=== PATIENT | male | born 1950 | race Caucasian/White ===

== ENCOUNTER 2018-06-10 09:01 | Day surgery (SDC) | payer BC ==
[2018-06-09 16:12] VITALS: Ht 162.6 cm; Wt 58.2 kg
[2018-06-10] VITALS (20 sets, daily range): BP systolic 103–130; BP diastolic 74–97; PULSE 58–88; RESP 13–22
[~2018-06-10] VITALS: Ht 162.6 cm; Wt 58.2 kg
[~2018-06-10 09:01] MED LIST: SOD CHLORIDE 0.9% 1,000 ML IV SCH
[2018-06-10] MEDS ORDERED: ASPI81TA52 PO (09:42)
[2018-06-10] MEDS ORDERED: ERGO500013 PO (09:42)
[2018-06-10] MEDS ORDERED: LOSA50TA14 PO (09:43)
[2018-06-10] MEDS ORDERED: ALEN70TA5 PO (09:43)
[2018-06-10] MEDS ORDERED: OMEP20CA16 PO (09:44)
[2018-06-10] MEDS ORDERED: TAMS0.4C2 PO (09:44)
[2018-06-10] MEDS ORDERED: AMLO5TAB4 PO (09:45)
[2018-06-10] MEDS ORDERED: METO-335 PO (09:45)
[2018-06-10] MEDS ORDERED: ATOR20TA38 PO (09:45)
[2018-06-10] MEDS ORDERED: PRED5TAB PO (09:46)
[2018-06-10] MEDS ORDERED: MIDAZOLAM 1 MG/ML 2 ML INJ ONE (10:55)
[2018-06-10] MEDS ORDERED: IODIXANOL LOCM 100 ML BTL ONE ×2 (10:55→12:49)
[2018-06-10] MEDS ORDERED: VERAPAMIL 5 MG INJ ONE (10:55)
[2018-06-10] MEDS ORDERED: HEPARIN 1000 UNITS/ML 10 ML INJ ONE (10:55)
[2018-06-10] MEDS ORDERED: LIDOCAINE 1% (MDV) 20 ML INJ ONE (10:55)
[2018-06-10] MEDS ORDERED: FENTAnyl 50 MCG/ML VIAL ONE (10:55)
[2018-06-10] MEDS ORDERED: NITROGLYCERIN (IC) 100 MCG/ML INJ ONE (10:56)
[2018-06-10] MEDS ORDERED: ASPIRIN 325 MG TAB ONE (11:56)
[2018-06-10] MEDS ORDERED: CLOPIDOGREL 300 MG TAB ONE (11:56)
[2018-06-10] MEDS ORDERED: SOD CHLORIDE 0.9% 1,000 ML IV SCH (12:47)
[2018-06-10] MEDS ORDERED: CLOP75TA27 PO (12:52)
--- NOTE | 2018-06-10 12:52 | PDOCDIS ---
Discharge Instructions CONDITION [id number] Patient Condition: [id number] Good HOME CARE INSTRUCTIONS: [id number] Diet Instructions: [id number] Low Fat /Cholesterol ACTIVITY: [id number] Activity Restrictions: [id number] Slowly Increase Activity Avoid heavy lifting (Not more than 5 pounds with left arm for 3 days) Do not Drive (x 1 day) Herminio Judge DO Jun 10, 2018 12:52
[2018-06-10] MEDS ORDERED: OXYCODONE/ACETAMINOPHEN (5/325) TAB PO PRN (13:00)
[2018-06-10] MEDS ORDERED: AL HYDROX/MG HYDROX/SIMETH 30 ML CUP PO PRN (13:00)
[2018-06-10] MEDS ORDERED: ONDANSETRON 4 MG INJ IV PRN (13:00)
[2018-06-10] MEDS ORDERED: ACETAMINOPHEN 325 MG TAB PO PRN (13:00)
--- NOTE | 2018-06-10 13:00 | OPR ---
Date/Time of Note Date/Time of Note DATE: 06/10/18 TIME: 12:53 Operative Report Procedure Date: Jun 10, 2018 Preoperative Diagnosis Unstable angina History of non-ST elevation myocardial infarction Postoperative Diagnosis Obstructive coronary artery disease Operation/Procedure Performed Left heart catheterization Right and left coronary angiogram Interpretation and supervision of right and left coronary angiogram Left ventricular pressure measurements PCI of the proximal to mid LAD with the placement of a 2.75 x 16 mm Synergy drug-eluting stent PCI of the mid LAD with a placement of a 2.5 x 16 mm Synergy drug-eluting stent Left radial artery approach Surgeon see signature line [employer] Bioinformatician staff Anesthesia Type: MAC Estimated Blood Loss: minimal Transfusion none Specimen None Grafts/Implants none Complications none Pt Condition Post Procedure: stable Procedure Description Findings Hemodynamics LV pressure 131/4 with an EDP of 13 Aortic pressure 136/78 Coronary findings Left main is large caliber vessel with no significant disease LAD is a medium caliber vessel with a proximal to mid 99% stenosis and then mid 90% stenosis Circumflex is a medium caliber vessel with a proximal 40% stenosis, OM1 with a bifurcation lesion, superior branch 70% stenosis, inferior branch 80% stenosis RCA is a medium caliber vessel and dominant with a proximal to mid 80% stenosis, distal 30% stenosis Description of procedure Patient brought to the Bioinformatician after informed consent. Patient prepped and draped as per protocol. Left radial artery access was obtained and a 5/6 [place] sheath was placed. A 5 [place] JL 3.5 diagnostic catheter was used to engage the left main and angiogram was performed. We next used a 5 [place] JR4 catheter and angiogram of the RCA was performed. Given the severe disease in the LAD, intervention was performed within the same setting. Heparin was used for anticoagulation. An XB LAD 4.0 guide catheter was used. A run through wire was used to cross the proximal lesion but given the band on the wire, we were unable to cross the mid lesion. We next used a second run through wire and crossed both lesions and then removed our initial wire. Lesions were both predilated. The mid lesion was stented with a 2.5 x 16 mm Synergy drug-eluting stent. This was postdilated with the stent delivery system balloon. The proximal to mid lesion was stented with a 2.75 x 16 mm Synergy drug-eluting stent. This was postdilated with the stent delivery system balloon. There was an excellent graft result with ISAIAH-3 flow with no evidence of dissection. We then crossed the aorta and LV pressure measurements were obtained as well as pullback. Patient remained hemodynamically stable throughout the procedure. Recommendations Dual antiplatelet therapy for minimum of 1 year to maintain stent patency Smoking cessation Staged PCI of the RCA via femoral approach. Consider intervention of the circumflex if remains symptomatic Herminio Judge DO Jun 10, 2018 13:00
--- NOTE | 2018-06-10 18:40 | NUR ---
EOSS: Pt received from central lab technician at 1315, pt remains alert oriented times four. SR throughout shift, BP WNL throughout shift, afebrile throughout shift. TR Band deflated starting 1446, 2ml q30min, checked for hematoma or bleeding of site q15min, no problems identified. TR band removed at 1750, no problems identified. Educated pt on no wrist movement, no pressure on that side of arm for 24hrs, and to monitor site for bleeding and to call MD if bleeding occurs. Pt understands concept. Dr. Judge rounded on pt, said okay for DC at 2030. Family Cecil, daughter notified.
--- NOTE | 2018-06-10 20:45 | NUR ---
Discharge Notes Received patient in bed awake, alert and oriented. Patient had discharge orders, family came to pick him up at 8.30pm, discharge instructions given to family (, Son and Daughter). All their questions addressed at this time. IV Heplock discontinued, family dressed him up and we took him to their car on a wheelchair. VS stable, discharged in stable condition.
[2018-06-11] MEDS ORDERED: ASPIRIN (EC) 81 MG TAB PO SCH (09:00)
[2018-06-11] MEDS ORDERED: CLOPIDOGREL 75 MG TAB PO SCH (09:00)
== END 2018-06-10 20:45 | disposition home or self-care (01) ==
LOC: SDS 09:01 → ICU 13:15 → SDS 20:45
PROVIDERS: ATTEND Internal Medicine Cardiovascular Disease
DX: I25.110 Atherosclerotic heart disease of native coronary artery with unstable angina pectoris (principal); I25.2 Old myocardial infarction
CPT/HCPCS: 80048; 85025; 85610; 85730; 87081; 93005; 93458; C1725; C1874; C1887; C9600; J1644; J2250; J3010; Q9967; Z7610

== ENCOUNTER 2018-07-22 13:39 | Observation (INO) | payer BC ==
[2018-07-21 16:25] VITALS: Ht 162.6 cm; Wt 130.0 kg
[2018-07-22] VITALS (22 sets, daily range): BP systolic 88–123; BP diastolic 64–90; PULSE 37–102; RESP 10–31
[~2018-07-22] VITALS: Ht 162.6 cm; Wt 130.0 kg
[~2018-07-22 13:39] MED LIST changes: +ALEN70TA5 PO; +AMLO5TAB4 PO; +ASPI81TA52 PO; +ATOR20TA38 PO; +CLOP75TA27 PO; +ERGO500013 PO; +LOSA50TA14 PO; +METO-335 PO; +OMEP20CA16 PO; +PRED5TAB PO; -SOD CHLORIDE 0.9% 1,000 ML IV SCH; +TAMS0.4C2 PO
[2018-07-22] MEDS ORDERED: ALBU18HF INHALATION (14:20)
[2018-07-22] MEDS ORDERED: ATEN-51 PO (14:21)
--- NOTE | 2018-07-22 15:24 | RADRPT ---
Vent Rate: 94 bpm RR Interval: 0 msec RI Interval: 156 msec QRS Duration: 76 msec QT Interval: 350 msec QTC Interval: 437 msec P-R-T [place]: 31 - -16 - 44 degrees Normal sinus rhythm Normal ECG Electronically Signed By: Doug Terrazas
[2018-07-22] MEDS ORDERED: MIDAZOLAM 1 MG/ML 2 ML INJ ONE (15:44)
[2018-07-22] MEDS ORDERED: IODIXANOL LOCM 100 ML BTL ONE (15:44)
[2018-07-22] MEDS ORDERED: LIDOCAINE 1% (MDV) 20 ML INJ ONE (15:44)
[2018-07-22] MEDS ORDERED: HEPARIN 1000 UNITS/ML 10 ML INJ ONE ×2 (15:44→15:51)
[2018-07-22] MEDS ORDERED: FENTAnyl 50 MCG/ML VIAL ONE (15:44)
[2018-07-22] MEDS ORDERED: NITROGLYCERIN (IC) 100 MCG/ML INJ ONE (15:46)
[2018-07-22] MEDS ORDERED: SOD CHLORIDE 0.9% 500 ML ONE (15:46)
[2018-07-22] MEDS ORDERED: IOHEXOL 350MG/ML 50 ML BTL ONE (16:26)
[2018-07-22] MEDS ORDERED: SOD CHLORIDE 0.9% 1,000 ML IV SCH (16:31)
[2018-07-22] MEDS ORDERED: ASPIRIN 81 MG TAB ONE (16:40)
[2018-07-22] MEDS ORDERED: CLOPIDOGREL 75 MG TAB ONE ×2 (16:40→16:48)
--- NOTE | 2018-07-22 16:44 | OPR ---
Date/Time of Note Date/Time of Note DATE: 07/22/18 TIME: 16:38 Operative Report Preoperative Diagnosis cad Postoperative Diagnosis 3vcad Operation/Procedure Performed LHC s/p rca pci Surgeon see signature line Digital Media Planner none Anesthesia Type: moderate sedation Estimated Blood Loss: minimal Transfusion none Specimen none Grafts/Implants none Complications none Procedure Description Procedure Date: Preoperative Diagnosis 3VCAD Postoperative Diagnosis 3VCAD Operation/Procedure Performed Left heart cath right and left coronary angiography s/p RCA PCI supervision/interpretation of right and left coronary angiography right radial artery approach Surgeon: see signature line Digital Media Planner: none Anesthesia Type: other (none) Anesthesiologist: Tourniquet Time: Estimated Blood Loss: minimal Transfusion: none Specimen: none Grafts/Implants: none Tubes/Drains: Complications: none Pt Condition Post Procedure: stable Procedure Description The patient broght to the production laborer after informed consent obtained. The right femoral artery was cannulated using the seldinger technique and a 6F sheath was inserted. Thereafter, bilateral selective angiography was performed using a JR4 and JL 4 catheters , respectively. Using a 6F JR4 Guide catheter to engage the RCA and followed by a runthrough wire. PTCA with 2.5 x 15mm balloon in the mid/prox region. Given difficutly in advancing the stent, a fredrick wire was used with a BMW wire being the main wire over whiech the 3.0x38mm Syergy MEMO deplyed up to 12atm (3.1 MM). The procedure was tolerated well without complication. Findings: LM - 10% LAD - Prox and Mid stents patent with mild diffuse dsease CX - 95% Mid disease, OM1 60% prox RCA - 70% prox, 90% mid, diffuse moderate distal disease > 3.0 x 38mm MEMO with 0% residual disease Plan: Possible PCI of the CX lesion in the future JESUS PAIGE MD Jul 22, 2018 16:44
[2018-07-22] MEDS ORDERED: ASPIRIN 325 MG TAB ONE (16:48)
[2018-07-22] MEDS ORDERED: ACETAMINOPHEN 325 MG TAB PO PRN (17:00)
[2018-07-22] MEDS ORDERED: ONDANSETRON 4 MG INJ IV PRN (17:00)
[2018-07-22] MEDS ORDERED: AL HYDROX/MG HYDROX/SIMETH 30 ML CUP PO PRN (17:00)
--- NOTE | 2018-07-22 18:56 | HP ---
DATE OF ADMISSION: 07/22/2018 CHIEF COMPLAINT AND HISTORY OF PRESENT ILLNESS: The patient is a 68-year-old gentleman with history of coronary artery disease, status post cardiac catheterization back in 05/2018 and at that time, he was noted to have multivessel disease. The patient underwent drug-eluting stent into LAD lesions. T he patient has been brought today for left heart catheterization and underwent PCI of RCA with bare m etal and drug-eluting stent placement. The patient is currently chest pain free. Denies any headach e, dizziness, syncope. No history of nausea, vomiting. No history of abdominal pain. No history of diaphoresis. No history of any focal weakness. No history of numbness, tingling in any extremities . The patient has a slight discomfort at the site of right groin. REVIEW OF SYSTEMS: Rest of review of systems unremarkable. PAST SURGICAL HISTORY: The patient is status post left inguinal hernia surgery. SOCIAL HISTORY: The patient smoked for several decades, quit like in 05/2018. No alcohol abuse. FAMILY HISTORY: Negative for CAD. The patient's mother was diabetic. ALLERGIES: NO KNOWN DRUG ALLERGIES. PHYSICAL EXAMINATION: GENERAL: Reveals the patient to be awake, alert, fairly oriented. VITAL SIGNS: Temperature 98.3, pulse 76, respirations 15, blood pressure 98/72, O2 saturation 98% on room air. HEENT: No eye discharge or redness. Conjunctivae and lids are normal. Oropharynx is clear. NECK: Supple. No mass, no thyromegaly, no carotid bruit. CHEST: Fairly clear. CARDIOVASCULAR: S1, S2 normal. No murmur. ABDOMEN: Soft, nondistended, nontender. Bowel sounds plus. EXTREMITIES: No leg edema. Pedal pulses are palpable. SKIN: Without acute rash. NEUROLOGICAL: The patient is awake, alert, fairly oriented with no gross focal deficit. The exam wa s rather limited because of recent cardiac catheterization. LABORATORY DATA: Done this morning, WBC 9.9, hemoglobin 14.6, platelet 288. Sodium 142, potassium 4 .1, BUN 20, creatinine 0.9. Coagulation profile unremarkable. IMPRESSION: 1. 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 2. Hypertension. 3. Dyslipidemia. 4. Benign prostatic hypertrophy. PLAN: The patient will be admitted in ICU and will be started on aspirin and Plavix. In addition, t he patient will also be continued on Toprol and Cozaar. The patient also takes small dose of prednis one. Reason is not clear at this time. We will continue Lipitor and Flomax at home. We will order holding parameters for both antihypertensive medications. Plan of care was discussed with the patien jessie's niece and nursing staff at ICU. If patient continues to do well, he will be discharged home ariella villareal. Dictated By: VALERIO GARCIA MD AB/NTS Conf#: [id number] DID#: [id number] CC: JESUS PAIGE MD;*EndCC*
[2018-07-22] MEDS ORDERED: TAMSULOSIN (SR) 0.4 MG CAP PO SCH (21:00)
[2018-07-22] MEDS ORDERED: ATORVASTATIN 40 MG TAB PO SCH (21:00)
[2018-07-22] MEDS ORDERED: ALBUTEROL HFA 8 GM INHALER INH PRN (22:30)
[2018-07-22] MEDS ORDERED: ATROPINE 1 MG/10 ML SYRINGE ONE (22:48)
[2018-07-22] MEDS ORDERED: ALBUTEROL 0.083% (NEB) 2.5 MG/3 ML AMP HHN PRN (23:00)
[2018-07-23] VITALS (38 sets, daily range): BP systolic 82–120; BP diastolic 60–100; PULSE 88–116; RESP 16–35
[2018-07-23] MEDS ORDERED: SOD CHLORIDE 0.9% 1,000 ML IV SCH (01:30)
[2018-07-23] MEDS ORDERED: PANTOPRAZOLE (EC) 40 MG TAB PO SCH (06:00)
[2018-07-23] MEDS ORDERED: ASPIRIN (EC) 81 MG TAB PO SCH (09:00)
[2018-07-23] MEDS ORDERED: predniSONE 5 MG TAB PO SCH (09:00)
[2018-07-23] MEDS ORDERED: CLOPIDOGREL 75 MG TAB PO SCH (09:00)
[2018-07-23] MEDS ORDERED: METOPROLOL (XL) 50 MG TAB PO SCH (09:00)
[2018-07-23] MEDS ORDERED: LOSARTAN 50 MG TAB PO SCH (09:00)
--- NOTE | 2018-07-23 13:01 | CONS ---
Assessment/Plan Assessment/Plan Hospital Course (Demo Recall) Obstructive CAD status post staged PCI to RCA Hypertension Dyslipidemia -Patient has done well post PCI to RCA yesterday. Continue dual antiplatelet therapy for minimum of 1 year to maintain stent patency. Beta-blockers heart rate and blood pressure permits, statin therapy as tolerated. DC planning Consultation Date/Type/Reason Admit Date/Time Jul 22, 2018 at 16:34 Initial Consult Date Type of Consult Cardiology Date/Time of Note DATE: 07/23/18 TIME: 12:59 24 HR Interval Summary Free Text/Dictation Denies chest pain, dizziness Exam/Review of Systems Vital Signs Vitals Vital Signs Date Temp Pulse Resp B/P (MAP) Pulse Ox O2 O2 Flow FiO2 Time Delivery Rate 07/23/18 98.1 112 21 92/60 (71) 99 Nasal 2.0 09:00 Cannula 07/22/18 27 23:04 Intake and Output 07/22/18 07/22/18 07/23/18 1515:00 23:00 07:00 IntakeIntake Total 575 ml 720 ml OutputOutput Total 350 ml 350 ml BalanceBalance 225 ml 370 ml Exam Constitutional: alert, oriented (No apparent distress) Respiratory: clear to auscultation, normal air movement Cardiovascular: regular rate and rhythm (S1-S2 heard) Gastrointestinal: soft, non-tender, bowel sounds Extremities: other (No edema, right groin is soft, +2 femoral artery pulse, no drainage) Labs Result Diagram: 07/23/18 0509 07/23/18 0509 Results 24hrs Laboratory Tests Test 07/22/18 14:25 07/23/18 05:09 White Blood Count 9.9 10.9 H Red Blood Count 4.86 4.55 L Hemoglobin 14.6 13.8 L Hematocrit 45.5 42.3 Mean Corpuscular Volume 93.6 93.0 Mean Corpuscular Hemoglobin 30.0 30.3 Mean Corpuscular Hemoglobin Concent 32.1 32.6 Red Cell Distribution Width 12.3 12.6 Platelet Count 288 229 # Mean Platelet Volume 10.0 10.0 Immature Granulocytes % 1.100 H 0.500 H Neutrophils % 63.1 78.9 H Lymphocytes % 23.0 8.8 L Monocytes % 9.2 9.0 Eosinophils % 2.7 2.1 Basophils % 0.9 0.7 Nucleated Red Blood Cells % 0.0 0.0 Immature Granulocytes # 0.110 H 0.060 H Neutrophils # 6.3 8.6 H Lymphocytes # 2.3 1.0 Monocytes # 0.9 1.0 H Eosinophils # 0.3 0.2 Basophils # 0.1 0.1 Nucleated Red Blood Cells # 0.0 0.0 Prothrombin Time 11.8 L Prothrombin Time Ratio 0.9 INR International Normalized Ratio 0.86 Activated Partial Thromboplast Time 29.1 Sodium Level 142 141 Potassium Level 4.1 4.3 Chloride Level 101 101 Carbon Dioxide Level 32 H 32 H Anion Gap 9 8 Blood Urea Nitrogen 20 19 Creatinine 0.91 0.82 Est Glomerular Filtrat Rate mL/min > 60 > 60 Glucose Level 78 115 Calcium Level 9.0 8.8 Medications Medications Current Medications Aspirin (Halfprin) 81 mg DAILY PO Last administered on 07/23/18 09:16; Admin Dose 81 MG; Start 07/23/18 at 09:00 Clopidogrel Bisulfate (plaVIX) 75 mg DAILY PO Last administered on 07/23/18 09:16; Admin Dose 75 MG; Start 07/23/18 at 09:00 Acetaminophen (Tylenol Tab) 650 mg Q4H PRN PO PAIN; Start 07/22/18 at 17:00 Al Hydrox/Mg Hydrox/Simethicone (Mag-Al Plus) 30 ml Q4H PRN PO GASTROINTESTINAL UPSET; Start 07/22/18 at 17:00 Ondansetron HCl (Zofran Inj) 4 mg Q4H PRN IV NAUSEA AND/OR VOMITING; Start 07/22/18 at 17:00 Atorvastatin Calcium (Lipitor) 40 mg HS PO Last administered on 07/22/18 21:23; Admin Dose 40 MG; Start 07/22/18 at 21:00 Metoprolol Succinate (Toprol Xl) 50 mg DAILY PO Last administered on 07/23/18 09:17; Admin Dose 50 MG; Start 07/23/18 at 09:00 Losartan Potassium (Cozaar) 50 mg DAILY PO Last administered on 07/23/18 09:17; Admin Dose 50 MG; Start 07/23/18 at 09:00 Prednisone (Prednisone) 5 mg DAILY PO Last administered on 07/23/18 09:17; Admin Dose 5 MG; Start 07/23/18 at 09:00 Tamsulosin HCl (Flomax) 0.4 mg QPM PO Last administered on 07/22/18at 21:23; Admin Dose 0.4 MG; Start 07/22/18 at 21:00 Pantoprazole (Protonix Tab) 40 mg DAILY@06 PO Last administered on 07/23/18 05:54; Admin Dose 40 MG; Start 07/23/18 at 06:00 Albuterol (Proventil 0.083% (Neb)) 2.5 mg Q6H RESP THERAPY PRN HHN SHORTNESS OF BREATH Last administered on 07/22/18at 23:00; Admin Dose 2.5 MG; Start 07/22/18 at 23:00 Sodium Chloride 1,000 ml @ 75 mls/hr [id number] IV Last administered on 07/23/18at 02:32; Admin Dose 75 MLS/HR; Start 07/23/18 at 01:30 Herminio Judge DO Jul 23, 2018 13:01
[2018-07-23] MEDS ORDERED: METO-319 PO (15:37)
--- NOTE | 2018-07-23 16:03 | RADRPT ---
Vent Rate: 104 bpm RR Interval: 0 msec ID Interval: 144 msec QRS Duration: 78 msec QT Interval: 330 msec QTC Interval: 433 msec P-R-T [place]: 32 - -15 - 40 degrees Sinus tachycardia Anterior infarct , age undetermined Abnormal ECG Electronically Signed By: Doug Terrazas
--- NOTE | 2018-07-24 00:01 | DS ---
Date/Time of Note Date/Time of Note DATE: 07/23/18 TIME: 23:54 Discharge Summary Admission/Discharge Info Admit Date/Time Jul 22, 2018 at 16:34 Discharge Date/Time Jul 23, 2018 at 16:45 Patient Condition: Stable Hx of Present Illness The patient is a 68-year-old gentleman with history of coronary artery disease, status post cardiac catheterization back in 05/2018 and at that time, he was noted to have multivessel disease. The patient underwent drug-eluting stent into LAD lesions. The patient has been brought today for left heart catheterization and underwent PCI of RCA with bare metal and drug-eluting stent placement. The patient is currently chest pain free. Denies any headache, dizziness, syncope. No history of nausea, vomiting. No history of abdominal pain. No history of diaphoresis. No history of any focal weakness. No history of numbness, tingling in any extremities. The patient has a slight discomfort at the site of right groin. 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 Continue Aspirin and Plavix. Possible PCI of the CX lesion in the future. - Hypertension. - Dyslipidemia. - COPD - Benign prostatic hypertrophy. Plan of marco antonio discussed with Dr Macdonald. Home Meds Active Scripts Metoprolol Succinate* (Toprol XL*) 50 Mg Tab.er.24h, 50 MG PO DAILY for 30 Days Prov:HALLIE TOBIAS 07/23/18 Clopidogrel Bisulfate (Clopidogrel) 75 Mg Tablet, 75 MG PO DAILY, #30 TAB 11 Refills Prov:Herminio Judge DO 06/10/18 Reported Medications Albuterol Sulfate* (Ventolin HFA*) 18 Gm Hfa.aer.ad, 2 PUFF INHALATION Q4H PRN for WHEEZING AND SOB, #1 INHALER 07/22/18 Prednisone* (Prednisone*) 5 Mg Tab, 5 MG PO DAILY, TAB 06/10/18 Atorvastatin Calcium* (Atorvastatin Calcium*) 20 Mg Tablet, 20 MG PO QHS, #30 TAB 06/10/18 Omeprazole* (Omeprazole*) 20 Mg Capsule.dr, 20 MG PO DAILY, #30 CAP 06/10/18 Tamsulosin Hcl* (Tamsulosin Hcl*) 0.4 Mg Cap.er.24h, 0.4 MG PO DAILY, CAP 06/10/18 Alendronate Sodium* (Fosamax*) 70 Mg Tablet, 70 MG PO EVERY SATURDAY, #4 TAB 06/10/18 Losartan Potassium* (Losartan Potassium*) 50 Mg Tablet, 50 MG PO DAILY, TAB 06/10/18 Aspirin (Low Dose Aspirin) 81 Mg Tablet.dr, 81 MG PO DAILY, #30 TAB 06/10/18 Ergocalciferol (Vitamin D2) (VITAMIN D2) 50,000 Unit Capsule, 95059 UNIT PO EVERY SATURDAY, CAP 06/10/18 Discontinued Reported Medications Atenolol* (Atenolol*) 25 Mg Tablet, 25 MG PO DAILY, #30 TAB 07/22/18 Amlodipine Besylate* (Norvasc*) 5 Mg Tablet, 5 MG PO DAILY, TAB 06/10/18 Metoprolol Succinate* (Toprol XL*) 25 Mg Tab.sr.24h, 25 MG PO DAILY, #30 TAB 06/10/18 Follow-up Plan Follow-up with Dr. Cunningham in 1-2 weeks Primary Care Provider Herminio Judge DO Time spent on discharge: > 30 minutes Pending Labs Laboratory Tests Test 07/23/18 05:09 White Blood Count 10.9 10^3/ul (4.8-10.8) Red Blood Count 4.55 10^6/ul (4.70-6.10) Hemoglobin 13.8 g/dl (14.0-18.0) Hematocrit 42.3 % (42.0-52.0) Mean Corpuscular Volume 93.0 fl (82.0-101.0) Mean Corpuscular Hemoglobin 30.3 pg (29.0-33.0) Mean Corpuscular Hemoglobin Concent 32.6 g/dl (32.0-37.0) Red Cell Distribution Width 12.6 % (11.5-14.5) Platelet Count 229 10^3/UL (140-415) Mean Platelet Volume 10.0 fl (7.4-10.4) Immature Granulocytes % 0.500 % (0.001-0.429) Neutrophils % 78.9 % (39.0-77.0) Lymphocytes % 8.8 % (15.0-51.0) Monocytes % 9.0 % (0.0-11.0) Eosinophils % 2.1 % (0.0-7.0) Basophils % 0.7 % (0.0-2.0) Nucleated Red Blood Cells % 0.0 /100WBC (0.0-0.0) Immature Granulocytes # 0.060 10^3/ul (0.0-0.031) Neutrophils # 8.6 10^3/ul (1.6-7.5) Lymphocytes # 1.0 10^3/ul (0.8-2.9) Monocytes # 1.0 10^3/ul (0.3-0.9) Eosinophils # 0.2 10^3/ul (0.0-0.5) Basophils # 0.1 10^3/ul (0.0-0.1) Nucleated Red Blood Cells # 0.0 10^3/ul (0.0-0.0) Sodium Level 141 mmol/L (135-144) Potassium Level 4.3 mmol/L (3.5-5.1) Chloride Level 101 mmol/L (97-110) Carbon Dioxide Level 32 mmol/L (21-31) Anion Gap 8 (5-13) Blood Urea Nitrogen 19 mg/dl (7-20) Creatinine 0.82 mg/dl (0.61-1.24) Est Glomerular Filtrat Rate mL/min > 60 mL/min (>60) Glucose Level 115 mg/dl (70-220) Calcium Level 8.8 mg/dl (8.4-10.2) HALLIE TOBIAS Jul 24, 2018 00:01
== END 2018-07-23 16:45 | disposition home or self-care (01) ==
LOC: SDS 13:39 → REC 16:34 → ICU 17:38
PROVIDERS: ADMIT Internal Medicine Interventional Cardiology; ATTEND Internal Medicine Interventional Cardiology
DX: I25.10 Atherosclerotic heart disease of native coronary artery without angina pectoris (principal); I10 Essential (primary) hypertension; E78.5 Hyperlipidemia, unspecified; J44.9 Chronic obstructive pulmonary disease, unspecified; N40.0 Benign prostatic hyperplasia without lower urinary tract symptoms; Z87.891 Personal history of nicotine dependence
CPT/HCPCS: 80048; 85025; 85610; 85730; 87081; 92928; 93005; 93454; 94664; C1725; C1760; C1874; C1887; C1894; J0461; J1644; J2250; J3010; J7030; J7040; J7512; Q9967; Z7500; Z7610; G0378

== ENCOUNTER 2018-10-14 07:36 | Day surgery (SDC) | payer BC ==
[2018-10-14] VITALS (23 sets, daily range): BP systolic 112–145; BP diastolic 83–102; PULSE 62–98; RESP 14–25; Ht 167.6 cm; Wt 63.6 kg
[~2018-10-14] VITALS: Ht 167.6 cm; Wt 63.6 kg
[~2018-10-14 07:36] MED LIST changes: +ALBU18HF INHALATION; -AMLO5TAB4 PO; +METO-319 PO; -METO-335 PO; +SOD CHLORIDE 0.9% 1,000 ML IV SCH
[2018-10-14] MEDS ORDERED: LIDOCAINE 1% (MDV) 20 ML INJ ONE (08:45)
[2018-10-14] MEDS ORDERED: IODIXANOL LOCM 100 ML BTL ONE (08:45)
[2018-10-14] MEDS ORDERED: FENTAnyl 50 MCG/ML VIAL ONE (08:45)
[2018-10-14] MEDS ORDERED: MIDAZOLAM 1 MG/ML 2 ML INJ ONE (08:45)
[2018-10-14] MEDS ORDERED: HEPARIN 1000 UNITS/ML 10 ML INJ ONE (08:45)
[2018-10-14] MEDS ORDERED: SOD CHLORIDE 0.9% 500 ML ONE (08:57)
[2018-10-14] MEDS ORDERED: NITROGLYCERIN (IC) 100 MCG/ML INJ ONE (09:25)
[2018-10-14] MEDS ORDERED: SOD CHLORIDE 0.9% 1,000 ML IV SCH (09:42)
[2018-10-14] MEDS ORDERED: ONDANSETRON 4 MG INJ IV PRN (10:00)
[2018-10-14] MEDS ORDERED: ACETAMINOPHEN 325 MG TAB PO PRN (10:00)
[2018-10-14] MEDS ORDERED: AL HYDROX/MG HYDROX/SIMETH 30 ML CUP PO PRN (10:00)
--- NOTE | 2018-10-14 10:01 | OPR ---
Date/Time of Note Date/Time of Note DATE: 10/14/18 TIME: 09:50 Operative Report Free Text/Dictation Procedure Date: 10/14/18 Preoperative Diagnosis 3VCAD Postoperative Diagnosis 3VCAD s/p OM1 - lower pole stent, upper pole PTCA of the ostium Operation/Procedure Performed Left heart cath right and left coronary angiography supervision/interpretation of right and left coronary angiography OM1 - lower pole stent, upper pole - PTCA of the ostium right femoral artery approach Surgeon: Octavio Sales Intern: none Anesthesia Type: other (none) Anesthesiologist: None Tourniquet Time: Estimated Blood Loss: minimal Transfusion: none Specimen: none Grafts/Implants: none Tubes/Drains: Complications: none Pt Condition Post Procedure: stable Procedure Description The patient brought to the photographic laboratory technician after informed consent obtained. The right radial artery was cannulated using the seldinger technique and a 5F sheath was inserted. Thereafter, bilateral selective angiography was performed using a JR4 and VL 3.5 Guide, respectively. A run through wire used to advance into the lower pole of OM1 PTCA 2.63x70gx balloon, follwed by [id number] Synergy stent inlated to 12mm (2.46mm). Thereafter, the wire was advnaced into the upper pole of OM1 due to ostial narrowing post stenting of the lower pole up to 18atm (2.46mm) with 0% residual stenosis and some vasospasm of the artery distal to PTCA. The procedure was tolerated well without complication. Findings: LM - Normal LAD - Proximal and Mid stent patent CX - OM1 - 80% proximal disease of the lower pole > [id number] MEMO; Upper Pole OM1 - ostial narrowing > PTCA 2.25x8mm > 10% residual and vasospasm more distally RCA - MID RCA STENT PATENT, distal 40% and PDA very distal small vessl 70% Plan: Asprin/plavix JESUS PAIGE MD Oct 14, 2018 10:00
[2018-10-14] MEDS ORDERED: ASPIRIN 325 MG TAB ONE ×2 (10:05→10:08)
[2018-10-14] MEDS ORDERED: CLOPIDOGREL 300 MG TAB ONE (10:05)
== END 2018-10-14 17:14 | disposition home or self-care (01) ==
LOC: SDS 07:36
PROVIDERS: ATTEND Internal Medicine Interventional Cardiology
DX: I25.10 Atherosclerotic heart disease of native coronary artery without angina pectoris (principal); Z87.891 Personal history of nicotine dependence; I10 Essential (primary) hypertension; I25.2 Old myocardial infarction
CPT/HCPCS: 80053; 85025; 85610; 85730; 92928; 93454; C1725; C1760; C1874; C1887; C1894; J1644; J2250; J3010; J7040; Q9967; Z7610